=== PATIENT | male | born 1960 | race Caucasian/White ===

== ENCOUNTER 2017-03-31 16:03 | Emergency (ER) | payer BC, OTHER ==
[~2017-03-31 16:03] MED LIST: AZIT1POW PO; DOXY100T PO
[2017-03-31 16:04] VITALS: BP 150/94; PULSE 88; RESP 16; TEMP 97.8; O2SAT 97
[2017-03-31 17:34] LABS: AUTOMATED NEUTROPHIL # 7.3 TH/MM3 (1.8-7.7); BASOPHIL # 0.1 TH/MM3 (0-0.2); BASOPHIL % 0.7 % (0.0-2.0); EOSINOPHIL # 0.2 TH/MM3 (0-0.4); EOSINOPHIL % 2.5 % (0.0-4.0); HEMATOCRIT 42.1 % (39.0-51.0); HEMOGLOBIN 14.1 GM/DL (13.0-17.0); LYMPH % 6.5 % (9.0-44.0); LYMPHOCYTE # 0.6 TH/MM3 (1.0-4.8); MEAN CELL VOLUME 99.1 FL (80.0-100.0); MEAN CORPUSCULAR HEMOGLOBIN 33.2 PG (27.0-34.0); MEAN CORPUSCULAR HGB CONC 33.5 % (32.0-36.0); MEAN PLATELET VOLUME 7.7 FL (7.0-11.0); MONO % 10.8 % (0.0-8.0); NEUT % 79.5 % (16.0-70.0); PLATELET COUNT 96 TH/MM3 (150-450); RED BLOOD COUNT 4.24 MIL/MM3 (4.50-5.90); RED CELL DISTRIBUTION WIDTH 19.4 % (11.6-17.2); WHITE BLOOD COUNT 9.2 TH/MM3 (4.0-11.0)
[2017-03-31 17:55] LABS: BICARBONATE 25.5 MEQ/L (21.0-32.0); CALCIUM 8.7 MG/DL (8.5-10.1); CREATININE 0.79 MG/DL (0.60-1.30)
[2017-03-31] MEDS ORDERED: SPIR25TA PO (18:08)
[2017-03-31] MEDS ORDERED: RANI150T PO (18:08)
[2017-03-31] MEDS ORDERED: DEXA0.5T PO (18:08)
[2017-03-31] MEDS ORDERED: PROC10TA PO (18:08)
[2017-03-31 19:15] VITALS: BP 141/85; PULSE 82; RESP 18; O2SAT 100
--- NOTE | 2017-03-31 19:30 | PD ---
HPI Chief Complaint: Skin Problem Time Seen by Provider: 19:08 Travel History International Travel<30 days: No Contact w/Intl Traveler<30days: No Traveled to known affect area: No History of Present Illness HPI 56-year-old white male presents to emergency department requesting evaluation of left leg swelling and a open sore which opened 2 weeks ago to his left lower leg. He has had a history of metastatic prostate cancer with radical prostatectomy and lymph node dissection. Patient has had a history of chronic leg edema. Patient states that his edema appears to be somewhat worse today as well as having some swelling in his proximal thigh. Patient was concerned that he may have a infection in his lower leg because it has not healed up and it has been draining since the initial injury 2 weeks ago. Patient denies any fever or chills. No nausea vomiting. History of recent chemotherapy for metastatic prostate cancer to the liver. He states that he has been off therapy now for several weeks. PFSH Past Medical History Cancer: Yes (HX OF PROSTATE CA) Hypertension: Yes Reproductive: Yes (STD DIAGNOSED TODAY) Tetanus Vaccination: Unknown Past Surgical History Narrative Surgical Da Jimi prostatectomy and lymph node dissection left leg Other Surgery: Yes (PROSTATE) Social History Alcohol Use: No Tobacco Use: No Substance Use: No Allergies-Medications (Allergen,Severity, Reaction): Coded Allergies: No Known Allergies (Unverified Adverse Reaction, Unknown, 03/31/17) Reported Meds & Prescriptions Reported Meds & Active Scripts Active Reported Dexamethasone 0.5 Mg Tab 0.5 Mg PO BID Prochlorperazine Maleate 10 Mg Tab 10 Mg PO Q6H PRN Spironolactone 25 Mg Tab 50 Mg PO DAILY Ranitidine (Ranitidine HCl) 150 Mg Tab 150 Mg PO DAILY Review of Systems General / Constitutional: No: Fever Eyes: No: Visual changes HENT: No: Headaches Cardiovascular: No: Chest Pain or Discomfort Respiratory: No: Shortness of Breath Gastrointestinal: Positive: Other (distention), No: Abdominal Pain Genitourinary: No: Dysuria Musculoskeletal: Positive: Edema, No: Limited ROM, Pain Skin: Positive Rash (left lower leg skin tear) Neurologic: No: Weakness Psychiatric: No: Depression Endocrine: No: Polydipsia Hematologic/Lymphatic: No: Easy Bruising Physical Exam Narrative GENERAL: Well-developed, well-nourished in no apparent distress. Nontoxic appearing. HEAD: Normocephalic, atraumatic. EYES: Pupils equal round and reactive. Extraocular motions intact. No scleral icterus. No injection or drainage. ENT: Nose clear. Throat without erythema, tonsillar hypertrophy or exudate. Uvula midline. Airway patent. NECK: Trachea midline. Supple, nontender, moves head freely. No central bony tenderness or spasm. CARDIOVASCULAR: Regular rate and rhythm without murmurs, gallops, or rubs. RESPIRATORY: Clear to auscultation. Breath sounds equal bilaterally. No wheezes , rales, or rhonchi. GASTROINTESTINAL: Abdomen soft, non-tender, nondistended. No hepato-splenomegaly , or palpable masses. No guarding. EXTREMITIES: The left lower leg has 2+ pitting edema from the knee down into the foot. Patient has a small skin avulsion to the anterior mid pretibial region. It is draining serous fluid. There is some mild hyperemia. He has intact sensation with good distal pulses. There is no significant pain. No cords. The right lower leg is unremarkable. There is no Homans sign. BACK: Nontender without deformity. No flank tenderness. NEUROLOGICAL: Awake, alert and oriented x 3 .Cranial nerves grossly intact. Motor and sensory grossly within normal limits. Normal speech. Data Data Last Documented VS Vital Signs Date Time Temp Pulse Resp B/P (MAP) Pulse Ox O2 Delivery O2 Flow Rate FiO2 03/31/17 19:15 82 18 141/85 (103) 100 Room Air 03/31/17 16:04 97.8 Orders Orders Complete Blood Count With Diff (03/31/17 16:19) Basic Metabolic Panel (Bmp) (03/31/17 16:19) Us Leg Venous Doppler (03/31/17 19:22) Ed Discharge Order (03/31/17 20:39) Labs Laboratory Tests Test 03/31/17 16:56 White Blood Count 9.2 TH/MM3 Red Blood Count 4.24 MIL/MM3 Hemoglobin 14.1 GM/DL Hematocrit 42.1 % Mean Corpuscular Volume 99.1 FL Mean Corpuscular Hemoglobin 33.2 PG Mean Corpuscular Hemoglobin Concent 33.5 % Red Cell Distribution Width 19.4 % Platelet Count 96 TH/MM3 Mean Platelet Volume 7.7 FL Neutrophils (%) (Auto) 79.5 % Lymphocytes (%) (Auto) 6.5 % Monocytes (%) (Auto) 10.8 % Eosinophils (%) (Auto) 2.5 % Basophils (%) (Auto) 0.7 % Neutrophils # (Auto) 7.3 TH/MM3 Lymphocytes # (Auto) 0.6 TH/MM3 Monocytes # (Auto) 1.0 TH/MM3 Eosinophils # (Auto) 0.2 TH/MM3 Basophils # (Auto) 0.1 TH/MM3 CBC Comment AUTO DIFF Differential Comment AUTO DIFF CONFIRMED Platelet Estimate LOW Platelet Morphology Comment NORMAL Blood Urea Nitrogen 23 MG/DL Creatinine 0.79 MG/DL Random Glucose 123 MG/DL Calcium Level 8.7 MG/DL Sodium Level 139 MEQ/L Potassium Level 4.5 MEQ/L Chloride Level 104 MEQ/L Carbon Dioxide Level 25.5 MEQ/L Anion Gap 10 MEQ/L Estimat Glomerular Filtration Rate 102 ML/MIN MDM Medical Decision Making Medical Screen Exam Complete: Yes Emergency Medical Condition: Yes Medical Record Reviewed: Yes Interpretation(s) Ultrasound left leg: Negative for DVT.CBC & BMP Diagram 03/31/17 16:56 Calcium Level 8.7 Differential Diagnosis Differential diagnosis: Cellulitis, abscess, DVT, dependent edema, chronic dependent edema Narrative Course CBC and chemistry are unremarkable. We will obtain a ultrasound of the leg to rule out DVT. Patient states that he has had chronic edema but it seems be somewhat worse more the thigh in usual. He states that he had a negative ultrasound approximately 3-4 months ago. Patient's ultrasound is negative for acute DVT. Patient's advised to use his compression stockings, elevate and follow-up with his doctor. This is skin avulsion, lymphedema Diagnosis Primary Impression: Skin avulsion Additional Impression: Chronic acquired lymphedema Patient Instructions: General Instructions Additional Instructions: Rest. Elevation. compression stocking. Follow-up with your doctor in the next 2-3 days. Return to the ER if any problems. Med/Other Pt SpecificInfo: Wound Care Disposition: 01 DISCHARGE HOME Condition: Stable Alexandru Frederick Mar 31, 2017 19:30
--- NOTE | 2017-03-31 21:00 | RADRPT ---
EXAM DATE/TIME: 03/31/2017 20:21 [facility] COMPARISON: No previous studies available for comparison. INDICATIONS : Left leg swelling. MEDICAL HISTORY : Hypertension. Prostate cancer. Chemotherapy. SURGICAL HISTORY : Prostatectomy. ENCOUNTER: Initial ACUITY: 2 weeks PAIN SCORE: 1/10 LOCATION: Left leg. TECHNIQUE: Venous ultrasound of the leg was performed from the inguinal ligament to the proximal calf. Real-lauren e, color Doppler and spectral tracing, compression and augmentation techniques were used. FINDINGS: There is normal compressibility of the deep venous system from the inguinal region to the proximal ca lf. No echogenic clot is seen in the lumen of the common femoral, femoral, popliteal, and posterior tibial veins. There is a normal response of the venous system to proximal and distal augmentation an d respiration. CONCLUSION: Normal examination. Adryan Yepez MD on March 31, 2017 at 20:58 Board Certified Radiologist. This report was verified electronically.
== END 2017-03-31 21:01 | disposition home or self-care (01) ==
LOC: NEPD 16:03
DX: S81.802A Unspecified open wound, left lower leg, initial encounter (principal); I89.0 Lymphedema, not elsewhere classified; I10 Essential (primary) hypertension; X58.XXXA Exposure to other specified factors, initial encounter
CPT/HCPCS: 80048; 85025; 93971; 99284